=== PATIENT | female | born 1975 | race Caucasian/White ===

== ENCOUNTER 2019-11-22 19:25 | Emergency (ER) | payer OTHER, BC, SELFPAY ==
--- NOTE | ~2019-11-22 | XR_ITS ---
EXAMINATION: XR chest 2V DATE: 11/22/2019 20:07 INDICATION: Heart palpitations, tachycardia TECHNIQUE: PA and lateral views of the chest are obtained. COMPARISON: 09/12/2016 FINDINGS: The lungs are free of acute opacities. There is no pleural effusion or pneumothorax. The ca rdiomediastinal silhouette is normal. The visualized bones and soft tissues are unremarkable. IMPRESSION: 1. No acute cardiopulmonary abnormality. Reviewed, dictated and finalized at location A. [facility]
[2019-11-22 19:30] VITALS: BP 145/99; PULSE 115; RESP 18; TEMP 36.8; O2SAT 100
--- NOTE | 2019-11-22 19:30 | ECG_ITS ---
Measurements Intervals [place] Rate: 104 P: 51 MI: 122 QRS: 70 QRSD: 96 T: 61 QT: 345 QTc: 455 Interpretive Statements SINUS TACHYCARDIA ABNORMAL ECG Electronically Signed On 11-26-2019 15:19:06 [employer] by Mac Dickerson D.O.
--- NOTE | 2019-11-22 19:33 | ED.ARRPALP ---
HPI - Arrhythmia/Palpitations General Chief Complaint: Arrhythmia/Palpitations Stated Complaint: heart racing Time Seen by Provider: 11/22/19 19:31 Source: patient and RN notes reviewed Mode of arrival: other Limitations: no limitations History of Present Illness HPI narrative: Pt is a 44 y/o female who presents to the ED witch c/o a rapid heart rate that began 45 minutes ago. Pt states that her heart rate was at 120 and she states the highest her heart rate got to was 150 BPM. She notes that her Apple watch alerted her that her heart rate was in the 120s for over 10 minutes while at rest. Pt states that she would watch her heart rate on her watch bounce from 80 BPM to 115 BPM and then back to 80 BPM within a few seconds. Pt has a hx of anxiety. Pt states that she had a karla, two cups of coffee, and an energy drink today. Pt denies drinking water today and having increased stress. Pt reports a similar episode. Pt saw a department of mathematics chair last year and wore a Holter monitor. Pt states that the department of mathematics chair said that she had an arrhythmia. She notes that she sees a furniture finisher apprentice next month. Pt states that her kids are sick. Pt also reports hand clamminess, mild SOB, and palpitations, but denies a sore throat, rhinorrhea, congestion, cough, and CP. complaint: heart racing Onset (ago): minute(s) (45) Time: 18:45 Duration: constant Context: occurred during rest Associated symptoms: shortness of breath (mild) and other (palpitations, hand clamminess) Related Data Home Medications Medication Instructions Recorded Confirmed No Home Medications 11/22/19 11/22/19 Allergies Allergy/AdvReac Type Severity Reaction Status Date / Time No Known Allergies Allergy Verified 11/22/19 19:29 Review of Systems Review of Systems: All systems reviewed & are unremarkable except as noted in HPI and below Constitutional: Constitutional: Reports other (hand clamminess) ENT: Denies sore throat and Denies other (rhinorrhea, congestion) Cardiovascular: Cardiovascular: Denies chest pain, Reports rapid heart rate and Reports other (palpitations) Respiratory: Respiratory: Denies cough and Reports dyspnea (mild) [facility] Past Medical History Medical History (Updated 11/22/19 @ 21:09 by Khang Malhotra MD) Anxiety Surgical History Surgical History (Updated 11/22/19 @ 19:49 by Michelle Marina) No history of previous surgery Family History Family History (Updated 06/03/14 @ 07:13 by DOCTOR UNKNOWN) Sibling Family history of mental disorder Hypertension Family history of alcoholism, Onset Age: 46 Family history of hepatitis Father Hypertension Family history of congestive heart failure Mother Family history of arthritis Social History Social History Smoking status: Never smoker Second hand tobacco smoke exposure: No Alcohol intake: current Gender identity (if verbalized by the patient): Female Exam Narrative: Exam Narrative: GENERAL: Well-appearing, well-nourished, and in no acute distress. HEAD: Normocephalic, atraumatic. ENT: Mucous membranes moist. CHEST: Clear to auscultation. No respiratory distress. HEART: Tachycardic and regular. No murmur heard. Normal peripheral pulses. ABDOMEN: Soft, nontender, nondistended. EXTREMITIES: Normal range of motion. No edema. SKIN: Warm, dry, no rash. NEURO: Alert and oriented x3. PSYCH: Normal mood and affect. Course Course Emergency Course: Unremarkable w/u, d.c home. Vital Signs Vital signs: Vital Signs Temperature 98.2 F 11/22/19 19:30 Pulse Rate 115 H 11/22/19 19:30 Respiratory Rate 18 11/22/19 19:30 Blood Pressure 145/99 H 11/22/19 19:30 Pulse Oximetry 100 11/22/19 19:30 Temperature 98.2 F 11/22/19 19:30 Pulse Rate 89 11/22/19 20:47 Respiratory Rate 18 11/22/19 20:47 Blood Pressure 155/90 H 11/22/19 20:47 Pulse Oximetry 98 11/22/19 20:47 MDM - Arrhythmia/Palpitations Lab Data Result diagrams: 11/22/19
[2019-11-22 19:36] VITALS: PULSE 115
[2019-11-22 20:11] VITALS: BP 103/75; PULSE 95; RESP 16; O2SAT 98
[2019-11-22 20:20] LABS: Basophils Percent Auto 0.6 % (0.2-1.2); Eosinophils Absolute Auto 0.1 K/mm3 (0-0.3); Eosinophils Percent Auto 1.6 % (0-4.4); Hematocrit 35.9 % (37.0-47.0); Hemoglobin 12.2 g/dL (12.0-15.0); Immature Granulocyte Absolute 0.01 K/mm3 (0.00-0.031); Immature Granulocyte Percent A 0.2 % (0-0.5); Lymphocytes Absolute Auto 2.26 K/mm3 (0.9-3.2); Lymphocytes Percent Auto 45.7 % (18.3-44.2); Mean Corpuscular Volume 91.3 fl (80-100); Monocytes Absolute Auto 0.3 K/mm3 (0.1-0.6); Monocytes Percent Auto 6.5 % (2.6-8.5); Neutrophils Absolute Auto 2.2 K/mm3 (1.3-6.7); Neutrophils Percent Auto 45.4 % (45.5-73.1); Platelet Count Result 207 k/mm3 (150-375); Red Blood Count 3.93 M/mm3 (4.2-5.4); Red Cell Distribution Width 12.1 % (11.5-14.5); White Blood Count 4.9 K/mm3 (4.5-10.0)
[2019-11-22 20:32] LABS: Blood Urea Nitrogen 11 mg/dL (7-17); Calcium 9.5 mg/dL (8.4-10.2); Carbon Dioxide 24 mmol/L (22-30); Chloride 99 mmol/L (98-107); Estimated CRCL calculation 97 ml/min; Estimated Glomerular Filt Rate > 60; Glucose 106 mg/dL (65-105); Magnesium 1.8 mg/dL (1.6-2.3); Potassium 3.6 mmol/L (3.4-5.0); Sodium 137 mmol/L (137-145)
[2019-11-22 20:43] LABS: Troponin I < 0.012 ng/mL (0.000-0.034)
[2019-11-22 20:47] VITALS: BP 155/90; PULSE 89; RESP 18; O2SAT 98
[2019-11-22] MEDS: SODIUM CHLORIDE 0.9% IV 1,000 ML 999 ML IV CONT (20:47)
[2019-11-22 21:32] VITALS: BP 120/83; PULSE 87; RESP 16; O2SAT 98
== END 2019-11-22 21:35 | disposition home or self-care (01) ==
PROVIDERS: Emergency Provider Emergency Medicine; PCP Physician Assistant
DX: R00.2 Palpitations (principal)
CPT/HCPCS: 36415; 71046; 80048; 83735; 84443; 84484; 85025; 93005; 99284; J7030

== ENCOUNTER 2021-01-10 12:37 | Outpatient (CLI) | payer OTHER, SELFPAY ==
--- NOTE | 2021-01-10 17:49 | WPDSIXMINUTE ---
Six Minute Walk This is a 6 minutes walk test. The test was performed and interpreted in accordance with the 2014 ERS/ATS task force guidelines. Findings: The patient's resting room air oxygen saturation measured by pulse oximetry was 96% and her heart rate was 104 bpm. Patient ambulated for 396 meters and oxygen saturation remained 94 to 95%. Heart rate at the end of the study was 105 bpm. There are no prior studies for comparison. Six Minute Walk Procedure Procedure Performed Pulmonary Stress Test (6 min walk)
--- NOTE | 2021-01-10 17:50 | P.PCNPFT_ITS ---
PFT Interpretation This is a pulmonary function test with pre and post-bronchodilator spirometry, plethysmography and diffusing capacity. The test was performed and results interpreted in accordance with the 2019 and 2005 ATS/ERS Task Force guidelines respectively using the Global Lung Function Initiative-2012 reference equations. Patient demonstrated good effort and c ooperation. Reproducibility criteria were met. The quality of the pre bronchodilator spirometry maneuver was Grade A and post bronchodilator spirometry maneuver was Grade A. Findings: Spirometry: the contour the inspiratory and expiratory flow tracing are normal. The pre bronchodilator FVC is 3.69 L, 95% predicted. The pre bronchodilator FEV1 is 2.80 L, 89% predicted. The FEV1: FVC ratio is 76%. The post bronchodilator FVC is 3.56 L, representing a 4% decrease. Post bronchodilator FEV1 is 2.78 L, representing 1% decrease. Plethysmography: The total lung capacity is 4.54 L, 84% predicted. The functional residual capacity is 2.17 L, 72% predicted. The residual volume is 0.79 L, 45% predicted. Diffusion capacity: The absolute diffusion capacity is 23.2, 96% predicted. The diffusing capacity corrected for alveolar volume is 5.00, 108% predicted. Impression: The spirometry is normal without evidence of an obstructive abnormality. There is no significant improvement after inhaling a single dose of albuterol. The total lung capacity is normal with an isolated decrease residual volume. This is an abnormal but nonspecific lung volume pattern. The diffusing capacity is normal. There are no prior studies for comparison PFT Procedure Performed PFT Procedure Performed Spirometry with Pre/Post Bronchodilator Plethysmography (Lung Vol) Diffusing Cap (DLCO)
== END 2021-01-10 12:38 | disposition home or self-care (01) ==
LOC: ANHPFT 12:38
PROVIDERS: PCP Physician Assistant; Visit Provider Nurse Practitioner
DX: R06.00 Dyspnea, unspecified (principal)
CPT/HCPCS: 94060; 94618; 94726; 94729

== ENCOUNTER → 2021-07-14 12:57 | Outpatient (CLI) | payer OTHER, SELFPAY ==
--- NOTE | ~2021-07-14 | XR_ITS ---
EXAMINATION: XR lumbar spine 2-3V DATE: 07/14/2021 14:18 INDICATION: Low back pain. TECHNIQUE: 3 views of lumbar spine were obtained. COMPARISON: None. FINDINGS: There is 4 degrees levocurvature of lumbar spine. There is 6 degrees dextrocurvature of tho racolumbar spine. Vertebral body heights and intervertebral disc heights are normal. The facet joints are unremarkable. IMPRESSION: 1. No etiology for the patient's symptoms. Reviewed, dictated and finalized at location A.
--- NOTE | ~2021-07-14 | XR_ITS ---
EXAMINATION: XR cervical spine 4-5V DATE: 07/14/2021 14:18 INDICATION: Neck pain. TECHNIQUE: 5 views of cervical spine including flexion and extension views were obtained. COMPARISON: None. FINDINGS: There is 8 degrees dextrocurvature of cervicothoracic spine. There is no abnormal motion wi th flexion or extension. Vertebral body heights are normal. There is mildly decreased disc height at C6-C7. 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 At C7-T1, there is at least mild facet joint osteoarthritis. IMPRESSION: 1. Mild cervical spondylosis. Reviewed, dictated and finalized at location A.
--- NOTE | ~2021-07-14 | XR_ITS ---
EXAMINATION: XR thoracic spine 2V DATE: 07/14/2021 14:18 INDICATION: Thoracic back pain. TECHNIQUE: 3 views of thoracic spine were obtained. COMPARISON: Chest 2 views 11/22/2019 FINDINGS: There is 12 degrees levoscoliosis of upper thoracic spine. Vertebral body heights are luisa l. There is mildly decreased disc height at multiple levels in upper thoracic spine. There are endpla te osteophytes at most levels. IMPRESSION: 1. Mild thoracic spondylosis. 2. Upper thoracic levoscoliosis. Reviewed, dictated and finalized at location A.
== END ==
PROVIDERS: Visit Provider Chiropractor
DX: M54.2 Cervicalgia (principal); M54.6 Pain in thoracic spine; M47.812 Spondylosis without myelopathy or radiculopathy, cervical region; M47.816 Spondylosis without myelopathy or radiculopathy, lumbar region; M47.814 Spondylosis without myelopathy or radiculopathy, thoracic region; M41.84 Other forms of scoliosis, thoracic region
CPT/HCPCS: 72050; 72070; 72100

== ENCOUNTER 2023-04-04 07:10 | Outpatient (CLI) | payer OTHER, SELFPAY ==
[2023-04-04 07:53] LABS: Basophils Percent Auto 0.8 % (0.2-1.2); Eosinophils Absolute Auto 0.1 K/mm3 (0-0.3); Eosinophils Percent Auto 1.9 % (0-4.4); Hematocrit 37.9 % (37.0-47.0); Hemoglobin 12.4 g/dL (12.0-15.0); Lymphocytes Percent Auto 47.6 % (18.3-44.2); Mean Corpuscular HGB Conc 32.7 g/dl (32-36); Mean Corpuscular Hemoglobin 29.7 pg (26-34); Mean Corpuscular Volume 90.9 fl (80-100); Monocytes Absolute Auto 0.3 K/mm3 (0.1-0.6); Monocytes Percent Auto 6.9 % (2.6-8.5); Neutrophils Absolute Auto 1.6 K/mm3 (1.3-6.7); Neutrophils Percent Auto 42.8 % (45.5-73.1); Platelet Count Result 213 k/mm3 (150-375); Red Blood Count 4.17 M/mm3 (4.2-5.4); Red Cell Distribution Width 13.9 % (11.5-14.5); White Blood Count 3.8 K/mm3 (4.5-10.0)
[2023-04-04 08:12] LABS: Iron 130 ug/dL (37-170)
[2023-04-04 08:16] LABS: Alanine Aminotransferase 15 U/L (6-35); Albumin Level 4.5 g/dL (3.5-5.1); Alkaline Phosphatase 38 U/L (38-126); Anion Gap 3 mmol/L (8-16); Aspartate Amino Transferase 23 U/L (14-36); Bilirubin,Total 1.7 mg/dL (0.2-1.3); Blood Urea Nitrogen 13 mg/dL (7-17); Calcium 8.9 mg/dL (8.4-10.2); Carbon Dioxide 31 mmol/L (22-30); Chloride 104 mmol/L (98-107); Cholesterol 181 mg/dL (0-200); Estimated Glomerular Filt Rate > 60; Glucose 80 mg/dL (65-110); HDL Direct 75 mg/dL; Sodium 138 mmol/L (137-145); Triglycerides 50 mg/dL (<150)
[2023-04-04 08:21] LABS: Percent Iron Saturation 37 % (20-50)
[2023-04-04 08:27] LABS: LDL Cholesterol Direct 94 mg/dL
[2023-04-04 08:28] LABS: Vitamin D 25 Hydroxy 30.2 ng/mL
== END 2023-04-04 07:11 | disposition home or self-care (01) ==
LOC: ANHLAB 07:11
PROVIDERS: PCP Family Medicine; Visit Provider Family Medicine
DX: Z00.00 Encounter for general adult medical examination without abnormal findings (principal); E55.9 Vitamin D deficiency, unspecified; E53.8 Deficiency of other specified B group vitamins; R53.83 Other fatigue; E78.5 Hyperlipidemia, unspecified; E61.1 Iron deficiency
CPT/HCPCS: 36415; 80053; 80061; 82306; 82607; 82728; 83540; 83550; 84443; 85025

== ENCOUNTER 2023-11-26 16:09 | Outpatient (CLI) | payer OTHER, SELFPAY ==
[2023-11-26 19:44] LABS: Basophils Percent Auto 0.5 % (0.2-1.2); Eosinophils Absolute Auto 0.1 K/mm3 (0-0.3); Eosinophils Percent Auto 1.6 % (0-4.4); Hematocrit 38.2 % (37.0-47.0); Immature Granulocyte Absolute 0.01 K/mm3 (0.00-0.031); Immature Granulocyte Percent A 0.1 % (0-0.5); Lymphocytes Absolute Auto 2.33 K/mm3 (0.9-3.2); Mean Corpuscular HGB Conc 31.4 g/dl (32-36); Mean Corpuscular Hemoglobin 28.2 pg (26-34); Mean Corpuscular Volume 89.9 fl (80-100); Mean Platelet Volume 10.6 fl (7.4-10.4); Monocytes Absolute Auto 0.5 K/mm3 (0.1-0.6); Monocytes Percent Auto 7.3 % (2.6-8.5); Neutrophils Absolute Auto 4.3 K/mm3 (1.3-6.7); Neutrophils Percent Auto 58.5 % (45.5-73.1); Platelet Count Result 268 k/mm3 (150-375); Red Blood Count 4.25 M/mm3 (4.2-5.4); Red Cell Distribution Width 13.5 % (11.5-14.5); White Blood Count 7.3 K/mm3 (4.5-10.0)
[2023-11-26 20:06] LABS: Alanine Aminotransferase 12 U/L (6-35); Albumin Level 4.6 g/dL (3.5-5.1); Alkaline Phosphatase 61 U/L (38-126); Anion Gap 5 mmol/L (8-16); Aspartate Amino Transferase 28 U/L (14-36); Bilirubin,Total 1.8 mg/dL (0.2-1.3); Blood Urea Nitrogen 10 mg/dL (7-17); Calcium 9.5 mg/dL (8.4-10.2); Carbon Dioxide 28 mmol/L (22-30); Chloride 104 mmol/L (98-107); Estimated Glomerular Filt Rate > 60; Glucose 98 mg/dL (65-110); Magnesium 2.2 mg/dL (1.6-2.3); Potassium 3.9 mmol/L (3.4-5.0); Sodium 137 mmol/L (137-145)
[2023-11-29 11:28] LABS: Vitamin D 1,25 (OH)2 Total 25 pg/mL (18-72); Vitamin D2 1,25 (OH)2 <8 pg/mL; Vitamin D3 1,25 (OH)2 25 pg/mL
== END 2023-11-26 16:10 | disposition home or self-care (01) ==
LOC: ANHGOSHLAB 16:10
PROVIDERS: PCP Family Medicine; Visit Provider Nurse Practitioner Family
DX: E61.1 Iron deficiency (principal); E55.9 Vitamin D deficiency, unspecified; R51.9 Headache, unspecified
CPT/HCPCS: 36415; 80053; 82652; 83735; 85025

== ENCOUNTER 2024-07-25 08:06 | Emergency (ER) | payer OTHER, SELFPAY ==
--- NOTE | 2024-07-25 08:21 | ED.URI ---
HPI - URI/Sore Throat General Chief Complaint: Upper Respiratory Infection Stated Complaint: Sore Throat Time Seen by Provider: 07/25/24 08:23 Source: patient and RN notes reviewed Mode of arrival: ambulatory Limitations: no limitations History of Present Illness HPI Narrative: Patient presents today complaining of sore throat since last night. Reports some postnasal drainage over the last several days as well. Denies any additional symptoms to include cough, congestion, fever. Daughters are both on antibiotics for your infections. Currently rates her pain 6/10 and has taken Tylenol without relief. Related Data Allergies Allergy/AdvReac Type Severity Reaction Status Date / Time No Known Allergies Allergy Verified 07/25/24 08:18 Review of Systems Review of Systems: CONSTITUTIONAL: Denies body aches, fever, chills, or sweats. EYES: Denies visual changes, redness, or discharge. ENT: Denies rhinorrhea, congestion, or otalgia.+ sore throat, postnasal drip CARDIOVASCULAR: Denies chest pain, palpitations, or edema. RESPIRATORY: Denies cough or dyspnea. GASTROINTESTINAL: Denies abdominal pain, nausea, vomiting, or diarrhea. GENITOURINARY: Denies dysuria or hematuria. SKIN: Denies rash, itching, or wounds. MUSCULOSKELETAL: Denies back pain, joint pain, or myalgia. NEUROLOGIC: Denies headache, numbness, tingling, or weakness. PSYCH: Denies depression or anxiety. [facility] Past Medical History Medical History Iron deficiency Vitamin D deficiency Surgical History Surgical History H/O LEEP (~2000) History of 2013 Family History Family History Sibling Family history of mental disorder Hypertension Family history of alcoholism, Onset Age: 46 Family history of hepatitis Father Hypertension Family history of congestive heart failure Mother Family history of arthritis Social History Social History Smoking status: Never smoker Second hand tobacco smoke exposure: No Alcohol intake: current Drinks per week: 1 Substance use: never Substance use type: does not use Lack of Transportation: No Lack of Food: Never True Current Housing: I Have Housing Concerned About Future Housing: No Difficulty Paying Gas/Electric Bills: No Difficulty Paying for Meds: No Currently Unemployed: No Education: Master's Degree or Higher Difficulty w/ Childcare or Family Care: No Living arrangements: with family Occupation/Education: occupation 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 Please see nursing chart for further information. There is no relevant family history pertinent to the presenting complaint Exam Narrative: GENERAL: Well-appearing, well-nourished, and in no acute distress. HEAD: Normocephalic, atraumatic. EYES: EOMI. No redness or drainage. Conjunctivae normal. ENT: Mucous membranes pink and moist. Nares clear. No rhinorrhea. TMs normal bilaterally. Throat mildly erythematous without edema or exudate. Small amount of postnasal drainage. Uvula midline. NECK: Normal AROM. Supple. Left anterior cervical chain lymphadenopathy. CHEST: No respiratory distress. Clear to auscultation. HEART: Regular rate and rhythm. No murmur appreciated. EXTREMITIES: Normal range of motion. No edema. SKIN: Warm, dry, no rash. Capillary refill normal. Normal skin turgor. NEURO: No focal
[2024-07-25 08:24] VITALS: BP 129/92; PULSE 108; RESP 16; TEMP 37; O2SAT 100
[2024-07-25 08:32] LABS: EDSTREPNEGPOS1 Negative (Negative)
== END 2024-07-25 08:39 | disposition home or self-care (01) ==
PROVIDERS: Emergency Provider Nurse Practitioner
DX: J02.9 Acute pharyngitis, unspecified (principal); E61.1 Iron deficiency
CPT/HCPCS: 87081; 87880; 99213; G0463